=== PATIENT | male | born 1960 | race Caucasian/White ===

== ENCOUNTER 2025-02-20 09:35 | Emergency (ER) | payer BC, SELFPAY ==
--- NOTE | 2025-02-20 09:38 | XRR_ITS ---
PROCEDURE INFORMATION: Exam: XR Left Wrist Exam date and time: 02/20/2025 9:44 AM Age: 64 years old Clinical indication: Pain; Wrist; Left; Additional info: Injury TECHNIQUE: Imaging protocol: Radiologic exam of the left wrist. Views: 3 or more views. COMPARISON: No relevant prior studies available. FINDINGS: Bones/joints: Normal. Soft tissues: Normal. XR/XR wrist LT min 3V* [id number] IMPRESSION: No acute findings.
[2025-02-20 09:41] VITALS: BP 166/94; PULSE 75; RESP 18; TEMP 36.8; O2SAT 98
--- OUTSIDE RECORDS SUMMARY | 2025-02-20 09:43 | XMS_ITS | Continuity of Care Document ---
Author Organization [facility]. If a dditional information is needed, contact Health Information Management at [phone] [address] [place] [address] Phone Care Team Providers Care Sap Business Intelligence Consultant Name Role Phone Unavailable Unavailable Unavailable Unavailable Unavailable Unavailable Unavailable Unavailable Unavailable Problems Pneumonia Onset:13-Dec-2015 Ana Quigley MD Allergies and Adverse Reactions No Known Allergies(Allergy) Onset: 10-Dec-2015 Social History Smoking Status Tobacco smoking consumption unknown Recorded: Dec-2015 Never smoked tobacco
--- OUTSIDE RECORDS SUMMARY | 2025-02-20 09:45 | XMS_ITS | Patient Health Record ---
Author Organization [facility] Address [address] [place], [place] [id number] Care Team Providers Care Jumpbasting Canvas Baster Name Role Phone BRIAN CANSECO Primary Care Provider RIVAS Maldonado Unavailable Allergies No Known Allergies Reason For Referral No Information Social History Tobacco Use: Social History Observation Description Date Details (start date - stop date) Never Smoker NA - NA Tobacco Status: Question Answer Notes Patient is a never smoker Plan Of Treatment Pending Test Test Name Order Date CR- KNEE COMP LEFT(ScImage-KNEECL) (7356 4) IH 11/24/2022 Insurance Providers Payer Name Payer Address Payer Phone Subscriber Number Group Number Insured Name Patient Relationship to Insured Coverage Start Date Coverage End Date [id number] PPO EPO [address] [place], [place] [id number] CESIA KEMP Self - patient is the insured Medications Administered Medication Instructions Date of Administration Dosage Notes MethylPREDNISolone Acetate 11/24/2022 80 mg Medical (General) History Medical History History ICD Code none Surgical History Surgery Date(Month/Year) Lumbar Surgery Hospitalization History Reason Date(Month/Year) none
--- NOTE | 2025-02-20 10:08 | W.ED.FALL ---
HPI - Fall General: Chief Complaint: Extremity Injury, Upper Stated Complaint: fall, L wrist pain Time Seen by Provider: 02/20/25 09:57 Source: patient Mode of arrival: ambulatory Limitations: no limitations History of Present Illness: Patient is a nice 64-year-old male presents to ED today for evaluation following a fall. He states yesterday he was walking his dog and was bending over to pick him up when there was an uneven surface-states it was some type of concrete grate that overturned-causing him to fall forward. He states he struck his upper lip and sustained abrasions to bilateral palms and knees. He feels like he outstretched his left hand to catch himself and is now having left wrist pain. He feels like this is probably just a sprain as he has not noticed any swelling and still has fairly normal range of motion. Last tetanus unknown. MD complaint: fall Onset (ago): day(s) (yesterday) Fall from: standing Place fall occurred: street Loss of consciousness: None Prolonged down time: no Symptoms prior to fall: none Context: tripped/slipped Associated symptoms-after fall: Reports no associated symptoms; Denies difficulty walking, headache(s) or neck pain Related Data Allergies Allergy/AdvReac Type Severity Reaction Status Date / Time No Known Allergies Allergy Verified 02/20/25 09:40 Review of Systems Eyes: Denies: change in vision or blurry vision Musc: Reports: joint pain (L wrist); Denies: neck pain, back pain, joint swelling, joint redness or limited range of motion Skin/Breast: Reports: other (abrasions) Neuro: Denies: headache(s) or difficulty walking Physical Exam Const: COMMON NORMALS: no acute distress, average body habitus, patient oriented x3, no limitations, healthy appearing, alert and well nourished GENERAL APPEARANCE: cooperative ORIENTATION/CONSCIOUSNESS: Yes awake, Yes oriented to person, Yes oriented to place and Yes oriented to time HENMT: FACE & SINUS IMAGES:  1. abrasion; no dental injuries noted Eye: GENERAL EYE: appearance normal, both eyes and all related structures Neck/C-Spine: COMMON NORMALS: full ROM CERVICAL SPINE: No Cervical spine tenderness Extremity: COMMON NORMALS: full ROM and capillary refill normal GENERAL: Yes normal exam except as noted LEFT UPPER EXTREMITY: Yes wrist (mild tenderness distal wrist) Left wrist: Yes inspection (normal gross inspection), Yes ROM (fairly normal ROM although slightly uncomfortable) and Yes neurovascular exam (normal) Neuro: COMMON NORMALS: patient oriented x3, moves all extremities, no focal motor deficits and no sensory deficits noted SENSORIUM/ORIENTATION: Yes alert, Yes oriented to person, Yes oriented to place and Yes oriented to time Skin: NARRATIVE SKIN EXAM: scattered abrasions-face, palms, knees Course Vital Signs: Vital signs: Vital Signs Temperature 98.2 F 02/20/25 09:41 Pulse Rate 75 02/20/25 09:41 Respiratory Rate 18 02/20/25 09:41 Blood Pressure 166/94 02/20/25 09:41 Pulse Oximetry 98 02/20/25 09:41 MDM - Fall Medical Decision Making XR unremarkable. Will place in LUIS ALFREDO wrap. Discussed RICE therapy. Tetanus was updated. Medical Records I reviewed the patient's medical records. XR interpretation done by ED provider, pending radiology final review Discharge Plan Discharge Patient Disposition: Home Clinical Impression: Sprain and strain of wrist, Abrasions of multiple sites Condition: Stable Discharge Orders: Discharge ED (Routine); Ordered 02/20/25 Ordered By: Riana Villalta Patient Instructions: Wrist Sprain (ED), Patient Portal & Colin Instructions Activity Restrictions/Additional Instructions: As we discussed, you may ice and elevate the extremity. You may take [id number] Tylenol and Motrin to help with discomfort. You may use the Luis Alfredo wrap provided to you today or purchase a Velcro wrist splint. Please follow-up with primary care if wrist does not seem to be improving with conservative therapies. Print Language: Portuguese Coding Level of Care Code ED Automation Developer for Jeremy Hamilton
[2025-02-20] MEDS: tetanus-dipt-pertussis 0.5 mL SDV IM (10:41)
[2025-02-20 10:57] VITALS: BP 169/97; PULSE 64; RESP 18; O2SAT 97
== END 2025-02-20 10:58 | disposition home or self-care (01) ==
PROVIDERS: Emergency Provider Physician Assistant
DX: S63.502A Unspecified sprain of left wrist, initial encounter (principal); S80.212A Abrasion, left knee, initial encounter; S80.211A Abrasion, right knee, initial encounter; S60.512A Abrasion of left hand, initial encounter; S60.511A Abrasion of right hand, initial encounter; W01.0XXA Fall on same level from slipping, tripping and stumbling without subsequent striking against object, initial encounter; Z23 Encounter for immunization
CPT/HCPCS: 73110; 90715; 99283